=== PATIENT | female | born 1970 | race Caucasian/White ===

== ENCOUNTER 2023-09-11 04:43 | Day surgery (SDC) | payer OTHER ==
[2023-09-07 13:40] VITALS: BMI 22.6
[2023-09-11 08:32] VITALS: TEMP 97.1
[2023-09-11 08:56] VITALS: RESP 13
[2023-09-11 09:00] VITALS: BP 121/70; PULSE 63
== END 2023-09-11 09:08 | disposition home or self-care (01) ==
LOC: JASU-ENDO 04:43
PROVIDERS: ATTEND Internal Medicine Gastroenterology
PROC: 0DB68ZX Excision of Stomach, Via Natural or Artificial Opening Endoscopic, Diagnostic (ICD-10-PCS; principal; 2023-09-11 08:00)
DX: Z87.19 Personal history of other diseases of the digestive system (principal); K31.A0 Gastric intestinal metaplasia, unspecified; K29.50 Unspecified chronic gastritis without bleeding; Z98.84 Bariatric surgery status

== ENCOUNTER 2024-05-28 13:18 | Emergency (ER) | payer OTHER ==
[2024-05-28 13:33] VITALS: BMI 27.9
[2024-05-28 14:30] LABS: PH,URINE 6.5 (5.0-8.0); URINE APPEARANCE CLEAR; URINE BILIRUBIN NEGATIVE (NEGATIVE); URINE COLOR YELLOW; URINE GLUCOSE (UA) NEGATIVE (NEGATIVE); URINE KETONE NEGATIVE (NEGATIVE); URINE LEUK ESTERASE NEGATIVE (NEGATIVE); URINE NITRITE NEGATIVE (NEGATIVE); URINE PROTEIN NEGATIVE (NEGATIVE); URINE UROBILINOGEN 0.2 mg/dL (0.2-1.0)
[2024-05-28] MEDS ORDERED: ACETAMINOPHEN INJECTION 100 ML IVPB ONE (14:46)
[2024-05-28] MEDS: ACETAMINOPHEN 1000 MG/100 ML BAG IVPB ONE (15:03)
[2024-05-28 15:09] LABS: BASO % 1.6 % (0-2.0); EOS % 1.8 % (0-4.5); HEMATOCRIT 33.5 % (32.4-45.2); HEMOGLOBIN 10.6 GM/dL (10.7-15.3); LYMPH % 37.5 % (8-40); MCHC 31.8 g/dl (32.0-36.0); MONO % 6.3 % (3.8-10.2); NEUT % 52.8 % (42.8-82.8); PLATELET COUNT 341 10^3/uL (134-434); RBC 4.85 M/mm3 (3.60-5.2); RDW 17.6 % (11.6-15.6); WHITE BLOOD COUNT 4.4 K/mm3 (4.0-10.0)
[2024-05-28] MEDS: FAMOTIDINE 20 MG TABLET PO ONE (15:13)
[2024-05-28] MEDS ORDERED: FAMOTIDINE 20 MG TABLET ONE (15:15)
[2024-05-28 15:31] LABS: CHLORIDE 105 mmol/L (98-107); SODIUM 135 mmol/L (136-145)
[2024-05-28 15:33] LABS: CALCIUM 8.3 mg/dL (8.5-10.1)
[2024-05-28 15:34] LABS: ALBUMIN 3.4 g/dl (3.4-5.0); BLOOD UREA NITROGEN 12.1 mg/dL (7-18); CO2 28 mmol/L (21-32); GLUCOSE,RANDOM 83 mg/dL (74-106); MAGNESIUM 2.3 mg/dL (1.8-2.4)
[2024-05-28 15:37] LABS: ANISOCYTOSIS 3+; CREATININE 0.9 mg/dL (0.55-1.3); MACROCYTOSIS 0; PLATELET ESTIMATE ADEQUATE; ROULEAU 1+; SGOT/AST 120 U/L (15-37)
[2024-05-28 15:38] LABS: BILIRUBIN,TOTAL 0.4 mg/dL (0.2-1)
[2024-05-28 15:39] LABS: ANION GAP 2 mmol/L (4-13); SGPT/ALT 30 U/L (13-61); TOT PROT 7.3 g/dl (6.4-8.2)
[2024-05-28 15:40] LABS: ALK PHOS 105 U/L (45-117)
[2024-05-28 15:44] LABS: INR 1.04 (0.83-1.09); PROTHROMBIN TIME (PATIENT) 11.9 SEC (9.7-13.0)
[2024-05-28 18:30] LABS: POTASSIUM 4.5 mmol/L (3.5-5.1)
[2024-05-28 18:31] LABS: CALCIUM 8.4 mg/dL (8.5-10.1)
[2024-05-28 18:35] LABS: CREATININE 0.8 mg/dL (0.55-1.3)
[2024-05-29 00:21] VITALS: BP 128/78; PULSE 79; RESP 16; TEMP 97.8
[2024-05-29] MEDS ORDERED: MORPHINE SULFATE 2 MG/ML SYRINGE ONE (00:23)
[2024-05-29] MEDS: morphine CARPU-JECT 2 MG/1 ML DISP.SYRIN IVPUSH ONE (00:27)
== END 2024-05-29 01:00 | disposition short-term general hospital (02) ==
LOC: JER 13:18
DX: R10.12 Left upper quadrant pain (principal); K56.1 Intussusception
CPT/HCPCS: 0241U-QW; 36415; 74177-TC; 80048; 80053; 81003; 83690; 83735; 85025; 85610; 85730; 87086; 99285-25; J0131; Q9967